=== PATIENT | male | born 1980 | race Caucasian/White ===

== ENCOUNTER 2019-05-13 13:31 | Emergency (ER) | payer MEDICARE ==
[2019-05-13 13:44] VITALS: Wt 109.1 kg
[2019-05-13 14:24] LABS: BASOPHILS 0.6 % (0-2); EOSINOPHILS 4.6 % (0-7); HEMATOCRIT 46.2 % (42.0-54.0); HEMOGLOBIN 15.7 g/dL (13.5-17.5); IMMATURE GRANULOCYTES 0.3 % (0-5); LYMPHOCYTES 23.8 % (15-50); MCH 31.7 pg (26.0-34.0); MCV 93.3 fL (80.0-100.0); MEAN PLATELET VOLUME 10.2 fL (7.4-10.4); MONOCYTES 12.5 % (2-11); NEUTROPHILS 58.2 % (40-80); PLATELET COUNT 206 10x3/uL (130-400); RBC 4.95 10x6/uL (4.20-6.10); RDW 13.2 % (11.5-14.5); WBC 6.9 10x3/uL (4.8-10.8)
[2019-05-13 14:32] LABS: APPEARANCE CLEAR (CLEAR); COLOR YELLOW (YELLOW); GLUCOSE NEGATIVE (NEGATIVE); KETONE NEGATIVE (NEGATIVE); NITRITE NEGATIVE (NEGATIVE); PROTEIN NEGATIVE (NEGATIVE); UROBILINOGEN NORMAL (NORMAL)
[2019-05-13 14:33] LABS: CALC OSMOLALITY 276 mosm/kg (275-300); CALCIUM 8.2 mg/dL (8.5-10.1); CHLORIDE - SERUM 107 mmol/L (98-107); CREATININE - SERUM 1.1 mg/dL (0.6-1.3); GLUCOSE 106 mg/dL (74-106); POTASSIUM - SERUM 4.2 mmol/L (3.5-5.1); SODIUM 139 mmol/L (136-145); UREA NITROGEN 11 mg/dL (7-18); eGFR NON AFRICAN AMERICAN 80 mL/min (90-120)
[2019-05-13 14:33] LABS: BILIRUBIN NEGATIVE (NEGATIVE)
[2019-05-13 14:39] LABS: ALKALINE PHOSPHATASE 81 U/L (46-116); ALT (SGPT) 23 U/L (10-68); AMYLASE - SERUM 34 U/L (25-115); BILIRUBIN - TOTAL 0.62 mg/dL (0.2-1.3); LIPASE 105 U/L (73-393); PROTEIN - SERUM 6.7 g/dL (6.4-8.2)
[2019-05-13] MEDS ORDERED: OMEPRAZOLE40 MG PO (16:40)
[2019-05-13] MEDS ORDERED: HYDROCODONE-A1 UDTA2 PO (16:40)
[2019-05-13 17:11] VITALS: BP 156/100
== END 2019-05-13 17:12 | disposition home or self-care (01) ==
LOC: D.ER 13:31
PROVIDERS: Emergency Medicine
DX: R10.9 Unspecified abdominal pain (principal); R19.5 Other fecal abnormalities; F17.200 Nicotine dependence, unspecified, uncomplicated

== ENCOUNTER 2019-08-20 10:37 | Emergency (ER) | payer OTHER ==
[~2019-08-20 10:37] MED LIST: HYDROCODONE-A1 UDTA2 PO; OMEPRAZOLE40 MG PO
[2019-08-20 10:42] VITALS: Wt 108.2 kg
[2019-08-20] MEDS ORDERED: MUCINEX DM ER1 EAC1 PO (12:30)
[2019-08-20] MEDS ORDERED: VOLTAREN75 MG PO (12:30)
[2019-08-20 12:43] VITALS: BP 138/86
== END 2019-08-20 12:44 | disposition home or self-care (01) ==
LOC: D.ER 10:37
DX: J40 Bronchitis, not specified as acute or chronic (principal); J06.9 Acute upper respiratory infection, unspecified; J45.909 Unspecified asthma, uncomplicated; Z72.0 Tobacco use

== ENCOUNTER 2020-02-08 15:29 | Emergency (ER) | payer OTHER ==
[~2020-02-08] VITALS: Ht 167.6 cm; Wt 115.9 kg
[~2020-02-08 15:29] MED LIST changes: +MUCINEX DM ER1 EAC1 PO; +VOLTAREN75 MG PO
[2020-02-08 15:33] VITALS: Ht 167.6 cm; Wt 115.9 kg
[2020-02-08 17:14] VITALS: BP 132/84
[2020-02-08] MEDS ORDERED: HYDROCODON-ACE1 EAC7 PO (17:24)
== END 2020-02-08 17:49 | disposition home or self-care (01) ==
LOC: D.ER 15:29
DX: K43.9 Ventral hernia without obstruction or gangrene (principal)

== ENCOUNTER → 2020-02-26 12:14 | Outpatient (CLI) | payer OTHER ==
[2020-02-08 15:33] VITALS: BMI 41.2
[~2020-02-26 12:14] MED LIST changes: +HYDROCODON-ACE1 EAC7 PO
== END | disposition home or self-care (01) ==
LOC: D.LAB 12:14
PROVIDERS: ATTEND Surgery
DX: Z11.59 Encounter for screening for other viral diseases (principal)

== ENCOUNTER 2020-02-29 06:47 | Day surgery (SDC) | payer OTHER ==
[~2020-02-29] VITALS: Ht 167.6 cm; Wt 110.7 kg
[2020-02-29 07:59] LABS: BASOPHILS 0.6 % (0-2); HEMATOCRIT 44.7 % (42.0-54.0); HEMOGLOBIN 15.4 g/dL (13.5-17.5); IMMATURE GRANULOCYTES 0.1 % (0-5); LYMPHOCYTES 26.9 % (15-50); MCH 31.5 pg (26.0-34.0); MCHC 34.5 g/dL (31.0-37.0); MCV 91.4 fL (80.0-100.0); MEAN PLATELET VOLUME 9.6 fL (7.4-10.4); MONOCYTES 8.6 % (2-11); NEUTROPHILS 59.8 % (40-80); PLATELET COUNT 201 10x3/uL (130-400); RBC 4.89 10x6/uL (4.20-6.10); RDW 12.7 % (11.5-14.5)
[2020-02-29 08:06] VITALS: BP 111/71; Ht 167.6 cm; Wt 110.7 kg
[2020-02-29 08:15] LABS: CALC OSMOLALITY 275 mosm/kg (275-300); CALCIUM 7.6 mg/dL (8.5-10.1); CARBON DIOXIDE 25.6 mmol/L (21.0-32.0); CHLORIDE - SERUM 108 mmol/L (98-107); GLUCOSE 105 mg/dL (74-106); POTASSIUM - SERUM 3.9 mmol/L (3.5-5.1); SODIUM 139 mmol/L (136-145); UREA NITROGEN 8 mg/dL (7-18); eGFR NON AFRICAN AMERICAN 89 mL/min (90-120)
--- NOTE | 2020-02-29 12:00 | NUR ---
1153 PT IS BECOMING MORE ANXIOUS ABOUT WAITING FOR SURGERY DUE TO A DELAY IN HIM BEING TAKEN TO SURGERY. PT ASKED IF HE COULD HAVE ANOTHER VALIUM. SPOKE WITH LORNE IN SURGERY AND SHE STATED IT WOULD BE APPROXIMATELY ANOTHER 30 MINUTES BEFORE THEY WOULD COME GET HIM. 1200 PT UP TO BR TO VOID AND HAS BEEN GIVEN A SECOND VALIUM
[2020-02-29] MEDS ORDERED: HYDROCODON-ACE1 EA10 PO (13:14)
--- NOTE | 2020-02-29 17:42 | NUR ---
1502-ADMINISTERED NORCO 10/325MG 1 BY MOUTH FOR INCISIONAL PAIN. 03/04. VSS. NO DISTRESS. TOLERATED JELLO AND PUDDING. DRESSING CDI. SPOUSE AT BEDSIDE, CL IN EASY REACH. ABD SOFT NON DISTENDED. UNABLE TO VOID AT THIS TIME. HAS ATTEMPTED
--- NOTE | 2020-02-29 17:43 | NUR ---
1627- PT VOIDED 350CC YELLOW URINE INTO URINAL. VSS. DRESSING CDI. PAIN 12/02. NO DISTRESS. REMOVED IV WITH CATH INTACT, DISPOSED INTO SHARPS, COVERED WITH GUAZE, SECURED WITH MEDIPORE TAPE. REVIEWED POST OP INSTRUCTIONS AND FOLLOW UP APPOINTMENT. VERBALIZED UNDERSTANDING. AT BEDSIDE AND VERBALIZES UNDERSTANDING WELL.
--- NOTE | 2020-02-29 17:45 | NUR ---
1727-PT VOIDED 350CC OF YELLOW URINE INTO URINAL. VSS. PAIN 5/10. NO DISTRESS. DRESSING TO ABD CDI. REMOVED IV WITH CATH INTACT, DISPOSED INTO SHARPS, COVERED WITH GUAZE, SECURED WITH MEDIPORE TAPE. REVIEWED POST OP INSTRUCTIONS AND FOLLOW UP APPOINTMENT WITH PT AND HIS . BOTH VERBALIZED UNDERSTANDING.
--- NOTE | 2020-02-29 17:47 | NUR ---
1735- PT DRESSED. ESCORTED OUT VIA W/C BY STAFF WITH SPOUSE AWAITING TO DRIVE HOME. =
--- NOTE | 2020-03-01 08:00 | OP ---
PATIENT NAME: SALVATORE MURRAY MEDICAL RECORD: [id number] :82 LOCATION:D.OPS ADMISSION DATE: SURGEON: LALIT HU MD DATE OF OPERATION: 02/29/2020 PREOPERATIVE DIAGNOSES: 1. Ventral hernia. 2. Tobacco dependent syndrome. 3. Posttraumatic stress disorder. POSTOPERATIVE DIAGNOSES: 1. Ventral hernia. 2. Tobacco dependent syndrome. 3. Posttraumatic stress disorder. PROCEDURE: 1. Ventral hernia repair with 4.[address] mesh. 2. Diagnostic laparoscopy. SURGEON: Lalit Hu MD REPORT OF PROCEDURE: The patient's abdomen was prepped and draped in sterile fashion. A semicircular incision was made on the inferior aspect of the umbilicus. Electrocautery was used to dissect through the subcutaneous tissues. We elevated the umbilicus and near the base of the umbilicus, there was noted to be an approximately 2 cm hernia defect. I penetrated this defect and entered the abdominal cavity. I then undermined the tissues on the fascia and took down the fatty tissue off of the anterior fascia. We then inserted a 12-mm Raman port and insufflated the abdomen, I was able to inspect the abdominal wall and there was no evidence of any other hernia defects through the patient's abdominal wall. I inspected the bilateral upper quadrants, bilateral lower quadrants, the pelvis, and both flanks. At this point, the ports and insufflation were then removed. The 4.[address] mesh was inserted in an underlay fashion. This was sutured down on all 4 sides with interrupted 0 Prolenes. I then irrigated out the wound with normal saline. The fascia was closed over the mesh using a running 0 Vicryl. The umbilicus was tacked down to the fascia with a single interrupted 3-0 Vicryl and the subcutaneous tissues were reapproximated with interrupted 3-0 Vicryl. I infused 10 mL of 0.25% Marcaine plain into the surrounding tissues and then closed the skin with running subcutaneous 5-0 Monocryl. COMPLICATIONS: None. CONDITION: Stable. ANESTHESIA: General endotracheal and local. BLOOD LOSS: Minimal. TRANSINT:[id number] Voice Confirmation ID: [id number] DOCUMENT ID: [id number] OPERATIVE REPORT [id number] SALVATORE MURRAY CHRISTIAN MD at 0800 CC: [id number] DICTATION DATE: 02/29/20 1311 ASSISTANT CONTROLLER: 02/29/20 1945 [facility] [place] 02/29/20 [place] [id number] [place] [address]
== END 2020-02-29 17:35 | disposition home or self-care (01) ==
LOC: D.OPS 06:47 → D.PAN 11:00 → D.OPS 11:00
PROVIDERS: ATTEND Surgery
DX: K43.9 Ventral hernia without obstruction or gangrene (principal); F17.200 Nicotine dependence, unspecified, uncomplicated; F43.10 Post-traumatic stress disorder, unspecified